=== PATIENT | male | born 1970 | race Caucasian/White ===

== ENCOUNTER 2020-12-17 11:00 | Day surgery (SDC) | payer BC ==
[2020-12-12 15:57] VITALS: BMI 31.4
[~2020-12-17 11:00] MED LIST: LACTATED RINGERS 1,000 ML IV SCH
[2020-12-17 11:50] VITALS: RESP 16; TEMP 98.7
[2020-12-17] MEDS ORDERED: PROPOFOL 10 MG/ML 20 ML VIAL IV ONE (12:06)
[2020-12-17] MEDS ORDERED: LIDOCAINE 1% INJ 10MG/ML (20 ML MDV) ONE (12:06)
--- NOTE | 2020-12-17 12:26 | P.PCN ---
Date of Procedure: 12/17/20 Procedure(s) Performed: Brief history: Patient is a pleasant 50-year-old white male scheduled for an elective upper endoscopy as well as colonoscopy as a part of evaluation of GERD and screening for colorectal neoplasia. He will has family history of colon cancer diagnosed in father. Procedure performed: Esophagogastroduodenoscopy biopsy Colonoscopy with snare polypectomy Preoperative diagnosis: GERD Screening for colon cancer/family history of colon cancer Anesthesia: MAC Procedure: After informed consent was obtained from the patient was brought into the endoscopy unit and IV sedation was administered by anesthesia under continuous monitoring. Initially upper endoscopy was done. The Olympus GF 160 video endoscope was inserted inserted into the mouth and esophagus intubated without any difficulty and was gradually advanced into the stomach and duodenum and carefully examined. The bulb and second part of the duodenum appeared normal. The scope was then withdrawn into the stomach adequately insufflated with air and upon careful examination the antrum had mild gastritis and biopsies were done from this area. The body, cardia and fundus appeared normal. The scope was then withdrawn into the esophagus. The GE junction was located at 44 cm to the incisors. It appeared regular with no erythema erosions or ulcerations. however there was mild thickening of the folds in the distal esophagus and biopsies were done from this area to rule out eosinophilic esophagitis. Rest of the esophagus appeared normal. Patient tolerated the procedure well. At this time the patient continued to remain sedation. Initial digital rectal examination was normal. Olympus CF 160 video colonoscope was then inserted into the rectum and gradually advanced to the cecum without any difficulty. Careful examination was performed as the scope was gradually being withdrawn. The prep was excellent. The cecum, ascending colon, transverse colon, appeared normal. In the descending colon there was a 6 mm polyp that was removed by snare polypectomy. Rest of the descending colon, sigmoid colon and rectum appeared normal. Retroflexion was performed in the rectum and no lesions were noted. Patient tolerated the procedure well. Impression: 1. Upper endoscopy revealed mild antral gastritis and mild thickening of the distal esophageal folds status post biopsies 2. Colonoscopy revealed a 6-7 mm polyp in the descending colon status post snare polypectomy. Recommendations: Findings of this examination were discussed with the patient as well as his family. He was advised to follow with the biopsy results. He'll continue with omeprazole 20 mg daily and follow antireflux measures. He can have a repeat screening colonoscopy in 5 years.
[2020-12-17 12:45] VITALS: BP 124/83; PULSE 68
== END 2020-12-17 12:57 | disposition home or self-care (01) ==
LOC: ORWHC2ENDO 11:00
PROVIDERS: ATTEND Internal Medicine Gastroenterology
DX: Z12.11 Encounter for screening for malignant neoplasm of colon (principal); D12.4 Benign neoplasm of descending colon; Z80.0 Family history of malignant neoplasm of digestive organs
CPT/HCPCS: 88305; 45385; 43239; J2001; J2704

== ENCOUNTER 2022-06-16 08:52 | Emergency (ER) | payer BC ==
[2022-06-16] MEDS ORDERED: HYDROmorphone 0.5 MG/0.5 ML SYRINGE IVP STA (09:09)
[2022-06-16] MEDS ORDERED: SODIUM CHLORIDE 0.9% 1,000 ML IV STA (09:09)
[2022-06-16] MEDS ORDERED: ONDANSETRON 4 MG/2 ML VIAL IVP STA (09:09)
[2022-06-16] MEDS ORDERED: KETOROLAC 15 MG/ML 1 ML VIAL IVP STA (09:09)
[2022-06-16 09:29] LABS: Basophils % (A) 0 %; Eosinophils # (A) 0.1 k/uL (0-0.7); Eosinophils % (A) 3 %; HCT 39.2 % (39.0-53.0); HGB 14.8 gm/dL (13.0-17.5); Lymphocytes # (A) 2.2 k/uL (1.0-4.8); Lymphocytes % (A) 39 %; MCH 33.2 pg (25.0-35.0); MCHC 37.7 g/dL (31.0-37.0); MCV 88.2 fL (80.0-100.0); Mean Platelet Volume 8.1; Monocytes # (A) 0.3 k/uL (0-1.0); Monocytes % (A) 6 %; Neutrophils # (A) 2.9 k/uL (1.3-7.7); Neutrophils % (A) 50 %; Platelet Count 272 k/uL (150-450); RBC 4.44 m/uL (4.30-5.90); RDW 12.4 % (11.5-15.5); WBC 5.8 k/uL (3.8-10.6)
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
[2022-06-16 09:41] LABS: Appearance,Urine Clear (Clear); Bacteria,Urine Rare /hpf; Bilirubin,Urine Negative (Negative); Blood,Urine Small (Negative); Color,Urine Yellow; Glucose,Urine (UA) Negative (Negative); Ketones,Urine Trace (Negative); Leukocyte Esterase,Urine Negative (Negative); Mucus,Urine Rare /hpf; Nitrite,Urine Negative (Negative); PH, Urine 8.5 (5.0-8.0); Protein,Urine Negative (Negative); RBC,Urine 77 /hpf (0-5); Specific Gravity,Urine 1.016 (1.001-1.035); Urobilinogen,Urine <2.0 mg/dL (<2.0); WBC,Urine 2 /hpf (0-5)
[2022-06-16 09:48] LABS: ALT 58 U/L (4-49); AST 38 U/L (17-59); African American GFR (CKD) >90 (>60 ml/min/1.73 sqM); Albumin 5.1 g/dL (3.5-5.0); Alkaline Phosphatase 67 U/L (38-126); Amylase 47 U/L (30-110); Anion Gap 15 mmol/L; Blood Urea Nitrogen 17 mg/dL (9-20); Calcium 9.5 mg/dL (8.4-10.2); Carbon Dioxide 18 mmol/L (22-30); Chloride 108 mmol/L (98-107); Glucose 140 mg/dL (74-99); Lipase 216 U/L (23-300); Non-African American GFR(CKD) >90 (>60 ml/min/1.73 sqM); Potassium 3.6 mmol/L (3.5-5.1); Sodium 141 mmol/L (137-145); Total Bilirubin 1.2 mg/dL (0.2-1.3); Total Protein 7.2 g/dL (6.3-8.2)
--- NOTE | 2022-06-16 09:56 | CT ---
EXAMINATION TYPE: CT abdomen pelvis wo con DATE OF EXAM: 06/16/2022 HISTORY: Left flank pain with nausea and vomiting CT DLP: 877.6 mGycm. Automated Exposure Control for Dose Reduction was Utilized. TECHNIQUE: CT scan of the abdomen and pelvis is performed without oral or IV contrast. COMPARISON: NONE FINDINGS: Within the limitations of a non-contrast study, the following observations are made. LUNG BASES: No significant abnormality is appreciated. LIVER/GB: Visualized liver is heterogeneously hypodense consistent with fatty infiltrative hepatocell ular disease. PANCREAS: No significant abnormality is seen. SPLEEN: No significant abnormality is seen. ADRENALS: No significant abnormality is seen. KIDNEYS: There is 6 to 7 mm nonobstructing calculus lower pole left kidney on image 57. There is genoveva tional 3 mm calculus at left UVJ coronal image 71 causing mild left-sided hydronephrosis. No right-si ded renal calculi or hydronephrosis. BOWEL: Normal-appearing appendix from base of cecum in the right upper pelvis. No suspicious small or large bowel dilatation. GENITAL ORGANS: Prostate gland upper limits of normal in size. Scattered left-sided pelvic phlebolith s. LYMPH NODES: No greater than 1cm abdominal or pelvic lymph nodes are appreciated. OSSEOUS STRUCTURES: Moderate disc space narrowing lumbosacral junction. OTHER: Small fat-containing umbilical hernia. IMPRESSION: There is a 3 mm calculus at left UVJ causing mild left-sided hydronephrosis.
--- NOTE | 2022-06-16 09:59 | XR ---
EXAMINATION TYPE: XR KUB DATE OF EXAM: 06/16/2022 COMPARISON: NONE HISTORY: Pain TECHNIQUE: One view abdominal series FINDINGS: The osseous structures are intact. The bowel gas pattern is nonspecific. Lung bases are clear. Ther e is a 3 mm calcification overlying the lower pole. Calcification pelvis likely vascular. Hypertrophi c changes IMPRESSION: 1. Nonspecific abdomen. There is a 3 mm lower pole left renal calculus.
[2022-06-16] MEDS ORDERED: ACET/COD 300 MG/30 MG STARTER PACK 6 TAB BTL PO STA (10:16)
[2022-06-16 11:06] VITALS: BP 133/86; PULSE 85; RESP 16; TEMP 97.7
== END 2022-06-16 11:06 | disposition home or self-care (01) ==
LOC: EC 08:52
DX: N20.0 Calculus of kidney (principal); K21.9 Gastro-esophageal reflux disease without esophagitis; M19.90 Unspecified osteoarthritis, unspecified site; Z91.018 Allergy to other foods; Z79.899 Other long term (current) drug therapy
CPT/HCPCS: 36415; 80053; 82150; 83690; 85025; 81001; 74018; 74176; 99284; 96374; 96375 ×2; 96361; J2405; J1885; J1170

== ENCOUNTER → 2022-08-10 | Outpatient (CLI) | payer BC ==
--- NOTE | 2022-08-11 06:38 | MR ---
EXAMINATION TYPE: MR knee LT wo con DATE OF EXAM: 08/10/2022 COMPARISON: Outside left knee x-ray June 14, 2022. HISTORY: Left knee pain, S/P fall 1 year ago. TECHNIQUE: Multiplanar, multisequence images of the knee is performed without IV contrast. FINDINGS: MEDIAL MENISCUS: Medial bulging medial meniscus on coronal images. Subtle slight oblique and horizont al signal anterior horn does not definitively extend to articular surface. Truncated appearance to th e posterior horn with abnormal signal extending to articular surface. Extension toward central body i s seen. LATERAL MENISCUS: Subtle slight linear signal posterior aspect posterior horn sagittal imaging does n ot definitively extend to articular surface. CRUCIATE LIGAMENTS: The anterior and posterior cruciate ligaments are intact and unremarkable. COLLATERAL LIGAMENTS: The medial collateral ligament and lateral collateral ligament complex are inta ct. Medial bulging medial collateral ligament with mild surrounding fluid. EXTENSOR MECHANISM: The patellar tendon appears intact. Large spur from the anterior superior patella r distal quadriceps tendon attachment. There is increased signal and thickening of the distal quadric eps tendon EFFUSION: No significant suprapatellar joint effusion. POPLITEAL CYST: No popliteal/serrano cyst. TRICOMPARTMENT SPACES: Mild to moderate narrowing and mild spurring patellofemoral compartment. Mild narrowing lateral and medial tibiofemoral compartments. CARTILAGE: Tricompartmental articular cartilage fairly well preserved. BONE MARROW SIGNAL: Susceptibility artifact from surgical change in the proximal tibia. OTHER: There is elongated T2 structure partially imaged in the posterior soft tissue distal femoral level coronal image 25 for reference. Possible postsurgical seroma. IMPRESSION: 1. Significantly emaciated tear medial meniscus involving posterior horn extending into central body. 2. Intrasubstance tear anterior horn medial meniscus. 3. Possible intrasubstance tear posterior horn lateral meniscus. 4. Mild to moderate tricompartment degenerative changes greatest patellofemoral compartment as detail ed above. 5. Mild MCL sprain injury. 6. Tendinopathy of chronic of the distal quadriceps tendon. 7. Partial visualization of surgical change through healed left tibia fracture.
== END | disposition home or self-care (01) ==
LOC: RADMRIMAIN 09:27
PROVIDERS: ATTEND Orthopaedic Surgery
DX: S83.412A Sprain of medial collateral ligament of left knee, initial encounter (principal); S83.242A Other tear of medial meniscus, current injury, left knee, initial encounter; M17.12 Unilateral primary osteoarthritis, left knee; M67.864 Other specified disorders of tendon, left knee; X58.XXXA Exposure to other specified factors, initial encounter

== ENCOUNTER 2022-11-26 08:02 | Day surgery (SDC) | payer BC ==
[2022-11-25 09:02] VITALS: BMI 30.7
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
[~2022-11-26 08:02] MED LIST changes: +DEXAMETHASONE SOD PHOSPHATE 4 MG/ML 1 ML VIAL IV ONE; +HYDROmorphone 0.5 MG/0.5 ML SYRINGE IVP PRN; -LACTATED RINGERS 1,000 ML IV SCH; +MIDAZOLAM 2 MG/2 ML VIAL IV PRN; +ONDANSETRON 4 MG/2 ML VIAL IVP ONE; +SCOPOLAMINE 1 MG/72 HR PATCH TRANSDERM ONE
[2022-11-26] MEDS: LACTATED RINGERS 1,000 ML IV SCH ×2 (08:47→08:55)
[2022-11-26] MEDS ORDERED: LIDOCAINE 2% INJ 20 MG/ML (2 ML VIAL) ONE (10:07)
[2022-11-26] MEDS ORDERED: KETOROLAC 15 MG/ML 1 ML VIAL ONE (10:07)
[2022-11-26] MEDS ORDERED: PROPOFOL 10 MG/ML 20 ML VIAL IV ONE (10:07)
[2022-11-26] MEDS ORDERED: fentaNYL (PF) 50 MCG/ML 2 ML AMP ONE (10:07)
[2022-11-26] MEDS ORDERED: HYDROmorphone (PF) 1 MG/ML ONE (10:07)
[2022-11-26] MEDS ORDERED: MIDAZOLAM 2 MG/2 ML VIAL ONE (10:07)
[2022-11-26] MEDS ORDERED: EPINEPHrine (PF) 1 ML in SODIUM CHLORIDE 0.9% IRRIGATIO 3,000 ML IRRIGATION ONE ×2 (10:27→10:28)
--- NOTE | 2022-11-26 10:58 | P.OP ---
Date of Procedure: 11/26/22 Preoperative Diagnosis: Left knee internal derangement Postoperative Diagnosis: Left knee oblique posterior medial meniscal tear Procedure(s) Performed: Left knee arthroscopic partial medial meniscectomy [facility] Surgeon: Shankar Joyner Estimated Blood Loss (ml): 10 Pathology: none sent Condition: stable Disposition: PACU Indications for Procedure: The patient is a 52-year-old male who presents with left knee pain and mechanical symptoms after previous injury despite conservative measures. A discussion of risks and benefits of operative intervention versus continued conservative measures was made with patient. He opted to proceed with surgery. Operative risks to include infection, neurovascular injury, development of blood clots, possible incomplete resolution of symptoms, possible worsening symptoms and need for subsequent procedures was discussed. Informed consent was obtained. Operative Findings: As below Description of Procedure: The patient was brought to the operating room, and after induction of general anesthesia examined the left knee. Collaterals were stable, Angelique was negative, and posterior drawer was negative. The left lower extremity was prepped and draped in a normal fashion. A superior lateral portal was made through a 3 mm skin incision superior and lateral to the patella. This was used for outflow. A lateral portal was made through a 5 mm vertical skin incision la teral to the patella tendon above the joint line. Diagnostic arthroscopy was performed. On inspection of the medial compartment, and oblique tear involving the posterior horn of the medial meniscus at the junction of the middle and posterior one third was noted in the white-red junction. This was not amenable to repair. This was debrided back to stable base with straight baskets and a motorized shaver. The remaining medial meniscus was stable and intact. Grade 1-2 chondral changes were noted diffusely. On inspection of the notch, the anterior cruciate ligament appeared to be intact. On inspection of the lateral compartment, no significant meniscal or cartilage pathology was noted. On inspection of the patellofemoral articulation there was chondral fibrillation however no loose chondral fragments. The gutters were clear debris. The knee was then thoroughly irrigated. The portals were closed with Steri-Strips. A sterile dressing was applied in addition to a compression stocking. The patient was awoken from general anesthesia and transferred to recovery room in good condition. Blood loss was estimated at 10 mL. No complications were incurred.
[2022-11-26 11:10] VITALS: RESP 16; TEMP 97.4
[2022-11-26] MEDS ORDERED: HYDROcodone/APAP 5-325MG 1 EACH TAB ONE (11:47)
[2022-11-26] MEDS ORDERED: HYDROcodone/APAP 5-325MG 1 EACH TAB PO ONE (11:50)
[2022-11-26] MEDS ORDERED: ONDANSETRON 4 MG/2 ML VIAL ONE (12:16)
[2022-11-26] MEDS ORDERED: ONDANSETRON 4 MG/2 ML VIAL IVP ONE (12:21)
[2022-11-26 12:29] VITALS: BP 125/68; PULSE 62
== END 2022-11-26 12:40 | disposition home or self-care (01) ==
LOC: OR 08:02
PROVIDERS: ATTEND Orthopaedic Surgery
DX: S83.242A Other tear of medial meniscus, current injury, left knee, initial encounter (principal); M19.90 Unspecified osteoarthritis, unspecified site; K21.9 Gastro-esophageal reflux disease without esophagitis; Z79.1 Long term (current) use of non-steroidal anti-inflammatories (NSAID); Z80.0 Family history of malignant neoplasm of digestive organs; V89.2XXA Person injured in unspecified motor-vehicle accident, traffic, initial encounter
CPT/HCPCS: 29881; J2250; J1100; J0690; J2405; J0171; J3010; J1170; J1885; J2704; J2001